=== PATIENT | female | born 1980 | race Caucasian/White ===

== ENCOUNTER 2017-02-27 19:14 | Emergency (ER) | payer SELFPAY ==
[2017-02-27] MEDS ORDERED: Acetaminophen 500 MG TAB ONE (19:50)
[2017-02-27] MEDS ORDERED: Oseltamivir 75 MG CAP ONE (19:50)
[2017-02-27] MEDS ORDERED: Ibuprofen 800 MG TAB ONE (19:50)
== END 2017-02-27 19:36 | disposition home or self-care (01) ==
LOC: MADERS 19:14
DX: J11.1 Influenza due to unidentified influenza virus with other respiratory manifestations (principal); F17.210 Nicotine dependence, cigarettes, uncomplicated
CPT/HCPCS: 99283

== ENCOUNTER 2017-03-01 06:55 | Emergency (ER) | payer SELFPAY ==
[2017-03-01] MEDS ORDERED: Metoclopramide HCl 10 MG TAB ONE (07:40)
[2017-03-01] MEDS ORDERED: Benzonatate 100 MG CAP ONE (07:40)
[2017-03-01] MEDS ORDERED: Ondansetron ODT 4 MG TAB ONE (07:40)
[2017-03-01] MEDS ORDERED: AMOXicillin 250 MG CAP ONE (07:40)
[2017-03-01] MEDS ORDERED: Ketorolac Tromethamine 60 MG/2 ML VIAL ONE (07:40)
== END 2017-03-01 08:45 | disposition home or self-care (01) ==
LOC: MADERS 06:55
DX: J11.1 Influenza due to unidentified influenza virus with other respiratory manifestations (principal); F17.210 Nicotine dependence, cigarettes, uncomplicated
CPT/HCPCS: 96372; J1885; Q0162

== ENCOUNTER 2019-11-06 14:22 | Emergency (ER) | payer BC, OTHER ==
[2019-11-07 16:01] LABS: SARS-CoV-2 MS2 Positive; SARS-CoV-2 N Gene Negative; SARS-CoV-2 S Gene Negative; SARS-CoV-2 by NAA Not Detected (NotDetected); SARS-CoV-2 orf1ab Negative
== END 2019-11-06 15:30 | disposition home or self-care (01) ==
LOC: MADERS 14:22
DX: R51 Headache (principal); R11.2 Nausea with vomiting, unspecified; Z20.828 Contact with and (suspected) exposure to other viral communicable diseases; F32.9 Major depressive disorder, single episode, unspecified; F17.210 Nicotine dependence, cigarettes, uncomplicated; Z79.899 Other long term (current) drug therapy
CPT/HCPCS: 87635; 99284; U0003

== ENCOUNTER 2023-02-26 13:52 | Emergency (ER) | payer BC | END 2023-02-26 15:12 | disposition home or self-care (01) | LOC: MADERS 13:52 | DX: S93.402A Sprain of unspecified ligament of left ankle, initial encounter (principal); F17.210 Nicotine dependence, cigarettes, uncomplicated; X50.1XXA Overexertion from prolonged static or awkward postures, initial encounter; Y93.01 Activity, walking, marching and hiking ==

== ENCOUNTER 2023-12-05 12:13 | Emergency (ER) | payer BC ==
[2023-12-05] MEDS ORDERED: Ibuprofen 600 MG TAB ONE (12:35)
[2023-12-05] MEDS ORDERED: Boostrix 0.5 ML (Tdap) VIAL (>/=7 yrs of age) ONE (12:38)
== END 2023-12-05 12:50 | disposition home or self-care (01) ==
LOC: MADERS 12:13
DX: S61.214A Laceration without foreign body of right ring finger without damage to nail, initial encounter (principal); W23.1XXA Caught, crushed, jammed, or pinched between stationary objects, initial encounter; Z87.891 Personal history of nicotine dependence; Z23 Encounter for immunization
CPT/HCPCS: 12001; 90471; 90715